=== PATIENT | male | born 1980 | race African-American/Black ===

== ENCOUNTER 2021-07-04 12:41 | Emergency (ER) | payer OTHER, MEDICAID ==
[~2021-07-04] VITALS: Ht 182.9 cm; Wt 108.4 kg
[2021-07-04 13:44] VITALS: BP 147/111
[2021-07-04] MEDS ORDERED: KETOROLAC TROMETH 60MG/2ML VIAL IM ONE (14:00)
[2021-07-04] MEDS ORDERED: PRED20TA2 PO (14:24)
[2021-07-04] MEDS ORDERED: IBUP800T27 PO (14:24)
== END 2021-07-04 14:42 | disposition home or self-care (01) ==
LOC: ER 12:41
DX: M54.42 Lumbago with sciatica, left side (principal); M62.838 Other muscle spasm
CPT/HCPCS: 96372; 99283; J1885